=== PATIENT | female | born 1995 | race Caucasian/White ===

== ENCOUNTER 2023-09-06 07:52 | Emergency (ER) | payer MEDICAID ==
[~2023-09-06] VITALS: Ht 149.9 cm; Wt 80.9 kg
[2023-09-06 08:04] VITALS: TEMP 98.5
[2023-09-06 08:34] LABS: URINE HCG NEGATIVE (NEG)
[2023-09-06 08:38] LABS: BILIRUBIN,URINE SMALL (Neg); CLARITY,URINE CLOUDY (Clear); COLOR,URINE YELLOW (Yellow); GLUCOSE, URINE NEGATIVE (Neg); KETONES,URINE TRACE mg/dl (Neg); LEUKOCYTE ESTERASE ,URINE TRACE (Neg); NITRITES, URINE NEGATIVE (Neg); OCCULT BLOOD,URINE NEGATIVE (Neg); PROTEIN,URINE NEGATIVE (Neg)
[2023-09-06 08:47] LABS: MUCUS STRANDS MODERATE /LPF (Neg); SQUAMOUS EPITHELIAL CELL,UR MANY /LPF (FEW); UA COLLECTION TYPE CLN CATCH MIDSTREAM
[2023-09-06 08:48] LABS: BACTERIA,URINE 3+ /HPF (Neg)
[2023-09-06 08:50] LABS: TRANSITIONAL EPI CELLS,URINE FEW /HPF
[2023-09-06 09:02] LABS: BASOPHILS % (AUTO) 0.3 % (0-1); EOSINOPHILS % (AUTO) 0.3 % (0-6); HEMATOCRIT 47.3 % (35.0-45.0); HEMOGLOBIN 16.6 g/dl (12.0-16.0); LYMPHOCYTES # (AUTO) 2.2 X10'3 (1.1-4.8); LYMPHOCYTES % (AUTO) 33.8 % (21-51); MEAN CORPUSCULAR HEMOGLOBIN 30.7 PG (27.0-31.0); MEAN CORPUSCULAR HGB CONC 35.2 g/dL (33.0-36.5); MEAN CORPUSCULAR VOLUME 87.2 FL (78-98); MEAN PLATELET VOLUME 7.1 FL (7.4-10.4); MONOCYTES # (AUTO) 0.4 X10'3 (0-0.9); MONOCYTES % (AUTO) 5.6 % (2-12); PLATELET COUNT 291 X10'3 (140-440); RED BLOOD COUNT 5.43 X10'6 (4.20-5.60); RED CELL DISTRIBUTION WIDTH 12.7 % (11.5-14.5); WHITE BLOOD COUNT 6.6 X10'3 (4.5-11.0)
[2023-09-06 09:03] LABS: WBC,URINE 0-4 /HPF (0-4)
[2023-09-06 09:17] LABS: ALANINE AMINOTRANSFERASE 123 U/L (12-78); ALBUMIN 4.4 G/DL (3.4-5.0); ALKALINE PHOSPHATASE 84 IU/L (46-116); ANION GAP 10 (8-16); ASPARTATE AMINO TRANSFERASE 49 U/L (10-37); BILIRUBIN,TOTAL 1.6 MG/DL (0.1-1.0); BLOOD UREA NITROGEN 11 MG/DL (7-18); BUN/CREATININE RATIO 20.4 (10.0-20.0); CALCIUM 9.6 MG/DL (8.5-10.1); CHLORIDE 102 MMOL/L (99-107); CREATININE 0.54 MG/DL (0.40-0.90); GLUCOSE 95 MG/DL (70-104); LIPASE 31 U/L (16-77); POTASSIUM 3.8 MMOL/L (3.5-5.1); SODIUM 137 MMOL/L (135-145); TOTAL CARBON DIOXIDE 24.7 MMOL/L (24-32); TOTAL PROTEIN 8.6 G/DL (6.4-8.2); eCRCL 106 ML/MIN; eGFR > 90 ML/MIN
[2023-09-06] MEDS ORDERED: normal saline 1000ml 1,000 ML IV ONE (09:30)
[2023-09-06] MEDS ORDERED: ondansetron/PF 4mg/2ml inj IV ONE (09:30)
[2023-09-06 10:30] LABS: FREE T4 (FREE THYROXINE) 1.21 NG/DL (0.73-1.40); THYROID STIMULATING HORMONE 2.29 ulU/ml (0.34-4.50)
[2023-09-06] MEDS ORDERED: FAMO-129 PO (10:44)
[2023-09-06] MEDS ORDERED: ONDA4TAB12 PO (10:44)
[2023-09-06] MEDS ORDERED: ALBU8HFA PO (10:44)
[2023-09-06 10:53] VITALS: BP 130/80; PULSE 89; RESP 18; O2SAT 98
== END 2023-09-06 10:54 | disposition home or self-care (01) ==
LOC: ER 07:53
DX: R10.13 Epigastric pain (principal); R11.2 Nausea with vomiting, unspecified; R10.11 Right upper quadrant pain; J45.909 Unspecified asthma, uncomplicated; Z88.5 Allergy status to narcotic agent; Z79.899 Other long term (current) drug therapy
CPT/HCPCS: 36415; 76700; 80053; 81001; 81025; 83690; 84439; 84443; 85025; 96360; 99284; J7030

== ENCOUNTER 2024-02-02 20:26 | Emergency (ER) | payer MEDICAID ==
[~2024-02-02] VITALS: Ht 149.9 cm; Wt 86.4 kg
[~2024-02-02 20:26] MED LIST: FAMO-129 PO; ONDA4TAB12 PO
[2024-02-02 20:27] VITALS: BP 141/84; PULSE 101; RESP 18; TEMP 97.6; O2SAT 99
[2024-02-02] MEDS ORDERED: CEPH-585 PO (21:26)
[2024-02-02] MEDS: cephalexin 250mg capsule PO ONE (21:49)
== END 2024-02-02 21:53 | disposition home or self-care (01) ==
LOC: ER 20:26
DX: S90.821A Blister (nonthermal), right foot, initial encounter (principal); L03.115 Cellulitis of right lower limb; J45.909 Unspecified asthma, uncomplicated; Z88.6 Allergy status to analgesic agent; Z79.899 Other long term (current) drug therapy; X58.XXXA Exposure to other specified factors, initial encounter; Y93.89 Activity, other specified; Y92.89 Other specified places as the place of occurrence of the external cause; Y99.8 Other external cause status
CPT/HCPCS: 73630; 99283